=== PATIENT | male | born 1955 | race Caucasian/White ===

== ENCOUNTER 2023-06-13 07:22 | Day surgery (SDC) | payer MEDICARE, OTHER ==
[~2023-06-13 07:22] MED LIST: Dextrose 5%-0.45% NaCl 1,000 ML IV SCH; Midazolam 1 MG/ML 2 ML SDV ONE; fentaNYL 100 MCG/2 ML SDV ONE
[2023-06-13] MEDS ORDERED: Midazolam 1 MG/ML 2 ML SDV IV ONE (07:23)
[2023-06-13] MEDS ORDERED: fentaNYL 100 MCG/2 ML SDV IV ONE (07:23)
[2023-06-13] MEDS: Dextrose 5%-0.45% NaCl 1,000 ML IV SCH (07:57)
[2023-06-13] MEDS: fentaNYL 100 MCG/2 ML SDV IV ONE ×2 (08:33→08:34)
[2023-06-13] MEDS: Midazolam 1 MG/ML 2 ML SDV IV ONE ×3 (08:35→08:39)
== END 2023-06-13 10:15 | disposition home or self-care (01) ==
LOC: DL.ENDO 07:22
PROVIDERS: ATTEND Internal Medicine Gastroenterology
DX: Z12.11 Encounter for screening for malignant neoplasm of colon (principal); D12.4 Benign neoplasm of descending colon; K57.30 Diverticulosis of large intestine without perforation or abscess without bleeding
CPT/HCPCS: 45385; 88305; J2250; J3010; J7042